=== PATIENT | female | born 1980 | race Two or more races ===

== ENCOUNTER 2017-06-06 20:07 | Inpatient (IN) | payer SELFPAY ==
[~2017-06-06 20:07] MED LIST: DEXAMETHASONE SOD PHOSPHATE INJ 4 MG/1 ML VIAL ONE; KETOROLAC TROMETHAMINE 60 MG/2 ML SDV ONE; METOCLOPRAMIDE HCL INJ/PF 10 MG/2 ML SDV ONE; ONDANSETRON HCL INJ/PF 4 MG/2 ML SDV ONE
[2017-06-06] MEDS ORDERED: CEFAZOLIN 2 GM/D5W RTU 2 GM/50 ML RTUPB IV ONE (20:41)
[2017-06-06] MEDS ORDERED: CITRIC ACID/SODIUM CITRATE ORAL SOLN 15 ML UDCUP ONE (20:41)
[2017-06-06 20:51] LABS: ABSOLUTE BASOPHILS # (AUTO) 0.1 10^3/uL (0.0-0.2); ABSOLUTE EOSINOPHILS # (AUTO) 0.1 10^3/uL (0.0-0.6); ABSOLUTE LYMPHOCYTES (AUTO) 2.4 10^3/uL (0.5-4.7); ABSOLUTE MONOCYTES (AUTO) 0.7 10^3/uL (0.1-1.4); ABSOLUTE NEUT (AUTO) 7.1 10^3/uL (1.7-8.2); BASOPHILS % (AUTO) 0.8 % (0-2); EOSINOPHILS % (AUTO) 0.9 % (0-6); HEMOGLOBIN 12.3 g/dL (12.0-15.5); HGB HCT DIFFERENCE 0.9; LYMPHOCYTES % (AUTO) 22.9 % (13-45); MEAN CORPUSCULAR HEMOGLOBIN 27.2 pg (27.0-33.4); MEAN CORPUSCULAR HGB CONC 34.2 g/dL (32.0-36.0); MEAN CORPUSCULAR VOLUME 80 fl (80-97); MONOCYTES % (AUTO) 7.1 % (3-13); RED BLOOD COUNT 4.53 10^6/uL (3.72-5.28); RED CELL DISTRIBUTION WIDTH 14.8 % (11.5-14.0); SEGMENTED NEUTROPHILS % (AUTO) 68.3 % (42-78); WHITE BLOOD COUNT 10.3 10^3/uL (4.0-10.5)
[2017-06-06 21:06] LABS: APPEARANCE,URINE CLEAR; BILIRUBIN,URINE NEGATIVE (NEGATIVE); GLUCOSE, URINE NEGATIVE (NEGATIVE); KETONES,URINE NEGATIVE (NEGATIVE); LEUKOCYTE ESTERASE,URINE LARGE (NEGATIVE); NITRITE,URINE NEGATIVE (NEGATIVE); PROTEIN,URINE NEGATIVE (NEGATIVE); URINE SPECIFIC GRAVITY 1.009; UROBILINOGEN,URINE NEGATIVE mg/dL (<2.0)
[2017-06-06] MEDS ORDERED: OXYTOCIN/NORMAL SALINE 20 UNIT/1,000 ML RTUINJ ONE (21:18)
[2017-06-06] MEDS ORDERED: OXYTOCIN 10 UNIT/ML VIAL ONE (21:18)
[2017-06-06 21:19] LABS: URINE BARBITURATES SCREEN NEGATIVE; URINE METHADONE SCREEN NEGATIVE; URINE OPIATES LOW NEGATIVE; URINE PHENCYCLIDINE SCREEN NEGATIVE
[2017-06-06] MEDS ORDERED: FENTANYL CITRATE INJ/PF 100 MCG/2 ML AMPUL ONE (21:19)
[2017-06-06] MEDS ORDERED: EPHEDRINE SULFATE INJ 50 MG/1 ML AMPULE ONE (21:19)
[2017-06-06] MEDS ORDERED: MIDAZOLAM 2 MG/2 ML INJ ONE (21:19)
[2017-06-06] MEDS ORDERED: MEPERIDINE HCL/PF INJ 25 MG/1 ML DISP.SYRIN IV PRN (21:56)
[2017-06-06] MEDS ORDERED: PROMETHAZINE HCL INJ 25 MG/1 ML VIAL IV PRN ×2 (21:56)
[2017-06-06] MEDS ORDERED: FENTANYL CITRATE INJ/PF 100 MCG/2 ML AMPUL IV PRN ×3 (21:56)
[2017-06-06] MEDS ORDERED: MORPHINE SULFATE 10 MG/ML INJ IV PRN (21:56)
[2017-06-06] MEDS ORDERED: DIPHENHYDRAMINE HCL 50 MG/ML VIAL IV PRN (21:56)
[2017-06-06] MEDS ORDERED: ONDANSETRON HCL INJ/PF 4 MG/2 ML SDV IV PRN (22:01)
[2017-06-06] MEDS ORDERED: ACETAMINOPHEN 100 ML IV ONE (22:16)
--- NOTE | 2017-06-06 23:03 | OPERATIVE REPORT E ---
Operative Report NAME: BARI BENITO : 1980 AGE: 37Y DATE OF SURGERY: 06/06/2017 ROOM: LR200 PREOPERATIVE DIAGNOSIS: 1. A 39-week intrauterine . 2. Active labor. 3. Breech presentation. 4. Patient desired permanent sterilization. POSTOPERATIVE DIAGNOSIS: 1. A 39-week intrauterine . 2. Active labor. 3. Breech presentation. OPERATION: 1. Primary low transverse section. 2. Bilateral tubal ligation using Filshie clips. SURGEON: Diego Perry D.O. POKER MACHINE ATTENDANT: None. ANESTHESIA: Spinal. COMPLICATIONS: None. PATHOLOGY: None. ESTIMATED BLOOD LOSS: 600 mL. FINDINGS: 1. Viable female at 2145 hours on June 06, 2017. Apgars 8 at 1 and 9 at 5. 2. Junie breech presentation. 3. Normal appearing bilateral fallopian tubes and ovaries. PROCEDURE: Patient was taken to the operating room where spinal anesthesia was administered. Once this was done, she was placed in the dorsal supine position with a leftward tilt upon the operating room table. She was then prepped and draped in normal sterile fashion. A scalpel was then used to make a Pfannenstiel skin incision. The skin incision was carried down through the subcutaneous tissue to the layer of the fascia. Fascia was then incised in the midline. The fascial incision was then extended bilaterally using the Bovie cautery. The superior fascial edge was gasped by Daniele clamps, elevated, and the rectus muscles dissected off sharply and bluntly. Attention was then turned to the inferior fascial edge which was grasped by Daniele clamps, elevated and the rectus muscles were dissected off sharply and bluntly. The rectus muscles were then in the midline, perineum identified, and entered bluntly with the surgeon's hands. A bladder blade was inserted. A scalpel was then used to make a low transverse hysterotomy incision. The infant was found to be in the junie breech presentation and delivered through this incision without difficulty using the breech maneuvers. The nose and mouth were suctioned. Cord was clamped and cut. The infant was handed off to the awaiting nurses. Cord blood was obtained. The placenta was then manually removed from the uterus. The uterus was then exteriorized and cleared of all clots and debris. The hysterotomy incision was then reapproximated using 2 layers of 1-0 Vicryl in a running locking fashion. Following closure of the second layer, excellent hemostasis was noted. A Filshie clip was then placed on the mid portion of each fallopian tube without difficulty. The uterus was then returned to the abdomen. Again, the hysterotomy incision was reinspected and found to have excellent hemostasis. Rectus muscles were then reapproximated using 1-0 Vicryl interrupted sutures. The fascia was then closed using 1-0 Vicryl in a running nonlocking fashion. The subcutaneous space was made hemostatic using Bovie cautery. The skin was closed using dissolvable saumya, covered with an OpSite, and then with a pressure dressing. At this point in time, the procedure was terminated. All sponge, lap, and needle counts were correct x2. Patient tolerated the procedure well. Patient was taken to the recovery room in stable condition. DICTATING PHYSICIAN: Diego Perry DO [id number] PHY#: [id number] ID: [id number] JOB#: [id number] ACCT: [id number] cc:Diego Perry D.O. >
[2017-06-06] MEDS ORDERED: HYDROMORPHONE HCL INJ/PF 2 MG/ML AMPULE ONE (23:18)
--- NOTE | 2017-06-07 00:49 | Admission Physical ---
Datetime Report Generated by CPN: 06/07/2017 00:49 CURRENT ADMISSION Chief Complaint: Uterine Contractions Indication for Induction: Not Applicable Indication for Induction: Term, Intrauterine ; Active Labor; Intact Membranes; Primary Section Admit Impression- Other: Breech Presentation Admit Plan: Admit to Unit; Initiate Section Protocol ALLERGIES Medication Allergies: Yes Medication Allergies: No Known Allergies (06/06/2017) Latex: No Latex Allergies OBSTETRICAL HISTORY EDC: 06/12/2017 00:00 : 4 Para: 3 Term: 3 : 0 SAB: 0 IAB: 0 Ectopic: 0 Livin Cesareans: 0 VBACs: 0 Multiple Births: 0 Gestational Diabetes: No Rh Sensitization: No Incompetent Cervix: No GI: No Infertility: No ART Treatment: No Uterine Anomaly: No IUGR: No Hx Previous C/S: No Macrosomia: No Hx Loss/Stillborn: No PIH: No Hx : No Placenta Previa/Abruption: No Depression/PP Depression: No PTL/PROM: No Post Hemorrhage: No Obstetrical History Comments: g1 - 12/02/2002 vaginal g2 - 08/22/2008 vaginal g3 - 02/21/2015 vaginal g4 - current - AMA breech presentation SEE RECORDS Alcohol: No Marijuana : No Cocaine: No Other Illicit Drugs: No Cigarettes: Never Smoker. [id number] MEDICAL HISTORY Diabetes: No Blood Transfusion: No Pulmonary Disease (Asthma, TB): No Breast Disease: No Hypertension: No Rn Obgyn Surgery: No Heart Disease: No Hosp/Surgery: No Autoimmune Disorder: No Anesthetic Complications: No Kidney Disease: No Abnormal Pap Smear: No Neuro/Epilepsy: No Psychiatric Disorders: No Other Medical Diseases: No Hepatitis/Liver Disease: No Significant Family History: No Varicosities/Phlebitis: No Trauma/Violence : No Thyroid Dysfunction: No INFECTIOUS HISTORY Gonorrhea: No Genital Herpes: No Chlamydia: No Tuberculosis: No Syphilis: No Hepatitis: No HIV/AIDS Exposure: No Rash or Viral Illness: No HPV: Yes PHYSICAL EXAM General: Normal HEENT: Normal Neurologic: Normal Thyroid: Deferred Heart: Normal Lungs: Normal Breast: Deferred Back: Normal Abdomen: Normal Genitourinary Exam: Normal Extremities: Normal DTRs: Normal Pelvic Type: Adequate Vital Signs: Reviewed; Within Normal Limits VAGINAL EXAM Dilatation: 5 Effacement: 50 Station: -1 MEMBRANES Membranes: Intact FETUS A Monitoring: External US FHR- Baseline: 140 Variability: Moderate 6-25bpm Accelerations: 15X15 Decelerations: None FHR Category: Category I Presentation: Breech Admit Comment: Will proceed with Primary C/S secondary to Breech presentation and active labor Will proceed with BTL, pt desires permanent sterlization PLANS FOR LABOR AND DELIVERY Labor and Delivery: None Pain Management: Spinal Feeding Preference: Breast Benefit of Breast Feed Discussed: Yes Circumcision: N/A INFORMED CONSENT Signature: with User ID: [email or web address]
[2017-06-07] MEDS ORDERED: OXYTOCIN/NORMAL SALINE 20 UNIT/1,000 ML RTUINJ INJ PRN (02:06)
[2017-06-07] MEDS ORDERED: OXYCODONE-ACETAMINOPHEN 5-325 MG TABLET PO PRN (02:30)
[2017-06-07] MEDS ORDERED: DIPH/PERTUSS(ACELL)/TETANUS VAC/PF 0.5 ML SYR (>=10YO) IM PRN (02:30)
[2017-06-07] MEDS ORDERED: PROMETHAZINE HCL INJ 25 MG/1 ML VIAL IM PRN (02:30)
[2017-06-07] MEDS ORDERED: MEASLES,MUMPS&RUBELLA VACC/PF 0.5 ML VIAL SUBCUT PRN (02:30)
[2017-06-07] MEDS ORDERED: SIMETHICONE 80 MG TAB.CHEW PO PRN (02:30)
[2017-06-07] MEDS ORDERED: RINGERS SOLUTION,LACTATED 1,000 ML IV SCH (02:30)
[2017-06-07] MEDS ORDERED: HYDROMORPHONE HCL INJ/PF 2 MG/ML AMPULE IV PRN (02:30)
[2017-06-07] MEDS ORDERED: ACETAMINOPHEN 325 MG TABLET PO PRN (02:30)
[2017-06-07] MEDS: IBUPROFEN 800 MG TABLET PO SCH ×3 (05:55→17:56)
--- NOTE | 2017-06-07 09:49 | PDOC PROGRESS REPORT ---
Subjective-OB Subjective: Post Delivery Day: 1 37 year old. Denies any needs at this time, has not gotten up yet, states pain well controlled with current pain meds, vang in place. Physical Exam (OB) Vital Signs: Temp Pulse Resp BP Pulse Ox 97.8 F 64 16 103/55 L 99 06/07/17 08:01 06/07/17 08:01 06/07/17 08:01 06/07/17 08:01 06/07/17 08:01 Intake & Output 06/06/17 06/07/17 06/08/17 06:59 06:59 06:59 Intake Total 300 Output Total 200 Balance -200 300 Weight 97 kg - PIH/Pre-Eclampsia Clonus: Negative Headache: Absent - Dressing Removed: No Incision: Dressing - Lochia Lochia Amount: Small 10-25 ml Lochia Color: Rubra/Red - Abdomen Description: Soft Hernia Present: No Fundal Description: Firm, Midline Fundal Height: u/3 - u/4 Objective-Diagnostic Laboratory: 06/06/17 20:40 06/06/17 06/06/17 06/06/17 20:13 20:40 20:40 WBC 10.3 RBC 4.53 Hgb 12.3 Hct 36.0 MCV 80 MCH 27.2 MCHC 34.2 RDW 14.8 H Plt Count 267 Seg Neutrophils % 68.3 Lymphocytes % 22.9 Monocytes % 7.1 Eosinophils % 0.9 Basophils % 0.8 Absolute Neutrophils 7.1 Absolute Lymphocytes 2.4 Absolute Monocytes 0.7 Absolute Eosinophils 0.1 Absolute Basophils 0.1 Urine Color YELLOW Urine Appearance CLEAR Urine pH 6.0 Ur Specific [place] 1.009 Urine Protein NEGATIVE Urine Glucose (UA) NEGATIVE Urine Ketones NEGATIVE Urine Blood SMALL H Urine Nitrite NEGATIVE Ur Leukocyte Esterase LARGE H Blood Type O POSITIVE Antibody Screen NEGATIVE Assessment and Plan(PN) - Assessment and Plan (1) S/P primary low transverse Is this a current diagnosis for this admission?: Yes Plan: routine post op care - Time Spent with Patient Time with patient: Less than 15 minutes Critical Time spent with patient: Less than 15 minutes Medications reviewed and adjusted accordingly: Yes - Disposition Anticipated Discharge: Home Within: within 48 hours
[2017-06-07] MEDS: DOCUSATE SODIUM 100 MG CAPSULE PO SCH ×2 (10:11→17:54)
[2017-06-07] MEDS: PRENATAL VITAMIN W-O CA NO5/FE FUMARATE/FA CAPSULE PO SCH (10:11)
[2017-06-07] MEDS: OXYCODONE-ACETAMINOPHEN 5-325 MG TABLET PO PRN ×2 (12:11→21:41)
[2017-06-07 14:18] LABS: HEMATOCRIT 26.7 % (36.0-47.0); MEAN CORPUSCULAR HEMOGLOBIN 26.8 pg (27.0-33.4); MEAN CORPUSCULAR HGB CONC 33.4 g/dL (32.0-36.0); MEAN CORPUSCULAR VOLUME 80 fl (80-97); RED BLOOD COUNT 3.33 10^6/uL (3.72-5.28); RED CELL DISTRIBUTION WIDTH 14.7 % (11.5-14.0); WHITE BLOOD COUNT 12.7 10^3/uL (4.0-10.5)
[2017-06-07 14:20] LABS: HEMOGLOBIN 8.9 g/dL (12.0-15.5)
[2017-06-08] MEDS: IBUPROFEN 800 MG TABLET PO SCH ×3 (00:54→11:33)
--- NOTE | 2017-06-08 08:21 | PDOC DISCHARGE SUMMARY ---
Final Diagnosis Discharge Date: 06/08/17 - Final Diagnosis (1) S/P primary low transverse Is this a current diagnosis for this admission?: Yes (2) Acute blood loss anemia Is this a current diagnosis for this admission?: Yes (3) History of bilateral tubal ligation Is this a current diagnosis for this admission?: Yes Discharge Data - Discharge Medication Home Medications: Pnv,Calcium 72/Iron/Folic Acid [ Plus Tablet] 1 each PO DAILY 06/06/17 Docusate Sodium [Colace 100 mg Capsule] 100 mg PO BID #60 capsule 06/08/17 Ferrous Sulfate 325 mg PO BID #60 tablet. 06/08/17 Ibuprofen [Motrin 800 mg Tablet] 800 mg PO Q6 #60 tablet 06/08/17 Oxycodone HCl/Acetaminophen [Percocet 5-325 mg Tablet] 2 tab PO Q4HP PRN #30 tablet 06/08/17 Gestational Age: 39 Reason(s) for Admission: Onset of Labor Procedures: NST Intrapartum Procedure(s): : Low Cervical, Transverse, Tubal Ligation - Data Baby 1 Female at 1 minute: 8 at 5 minutes: 9 Home with Mother: Yes Complications: No - Diagnosis Test Laboratory: Temp Pulse Resp BP Pulse Ox 98.4 F 71 16 96/48 L 100 06/08/17 04:34 06/08/17 04:34 06/08/17 04:34 06/08/17 04:34 06/08/17 04:34 06/06/17 06/06/17 06/07/17 20:13 20:40 13:59 RBC 4.53 3.33 L Hgb 12.3 8.9 L D Hct 36.0 26.7 L Urine Opiates Screen NEGATIVE - Discharge information/Instructions Discharge Activity: No Driving Discharge Diet: Regular Disposition: HOME, SELF-CARE Follow up with: [facility] in: 1, Weeks
[2017-06-08 09:00] VITALS: BP 100/50
[2017-06-08] MEDS: PRENATAL VITAMIN W-O CA NO5/FE FUMARATE/FA CAPSULE PO SCH (09:50)
[2017-06-08] MEDS: DOCUSATE SODIUM 100 MG CAPSULE PO SCH (09:50)
[2017-06-08] MEDS: OXYCODONE-ACETAMINOPHEN 5-325 MG TABLET PO PRN (11:34)
== END 2017-06-08 13:19 | disposition home or self-care (01) | DRG 765 ==
LOC: LC 20:07 → LR 20:30 → 2S 06-07 00:22
PROVIDERS: ADMIT Obstetrics & Gynecology; ATTEND Obstetrics & Gynecology
PROC: 10D00Z1 Extraction of Products of Conception, Low, Open Approach (ICD-10-PCS; principal; 2017-06-06)
PROC: 0UL70CZ Occlusion of Bilateral Fallopian Tubes with Extraluminal Device, Open Approach (ICD-10-PCS; 2017-06-06)
PROC: 4A1HXCZ Monitoring of Products of Conception, Cardiac Rate, External Approach (ICD-10-PCS; 2017-06-06)
PROC: 3E0234Z Introduction of Serum, Toxoid and Vaccine into Muscle, Percutaneous Approach (ICD-10-PCS; 2017-06-08)
DX: O64.1XX0 Obstructed labor due to breech presentation, not applicable or unspecified (principal); D62 Acute posthemorrhagic anemia; O99.02 Anemia complicating childbirth; Z37.0 Single live birth; Z3A.39 39 weeks gestation of pregnancy; Z30.2 Encounter for sterilization; Z23 Encounter for immunization
CPT/HCPCS: 1961; 36415; 59025; 80307; 81005; 85025; 85027; 86592; 86850; 86900; 86901; 90715; J0131; J0690; J1100; J1170; J1885; J2250; J2405; J2590; J2765; J3010; J3490

== ENCOUNTER 2019-11-14 15:28 | Emergency (ER) | payer SELFPAY ==
[2019-11-14] MEDS ORDERED: PROMETHAZINE HCL 25 MG TABLET PO ONE (15:58)
[2019-11-14] MEDS ORDERED: ACETAMINOPHEN 325 MG TABLET PO ONE (15:58)
--- NOTE | 2019-11-14 16:00 | ER Document Report ---
ED Medical Screen (RME) - General Chief Complaint: Flu Symptoms Stated Complaint: FEVER Time Seen by Provider: 11/14/19 15:48 Primary Care Provider: YEE RADFORD DO [Primary Care Provider] - Follow up as needed Mode of Arrival: Ambulatory Information source: Patient Notes: This 39-year-old primarily speaking Persian individual presents emergency department with complaints of cold symptoms for the past 3 days. Reports severe headache fever vomiting 3 times prior to arrival, sore throat low back pain abdominal pain starting today. Reports her children have the same symptoms. Denies diarrhea. Patient has not been out of the country or exposed to anybody recently on the country. Denies flu vaccine. Patient took ibuprofen 600 mg at approximately noon today. I have greeted and performed a rapid initial assessment of this patient. A comprehensive ED assessment and evaluation of the patient, analysis of test results and completion of the medical decision making process will be conducted by additional ED providers. TRAVEL OUTSIDE OF THE [place] IN LAST 30 DAYS: No - Related Data Allergies/Adverse Reactions: No Known Allergies Allergy (Unverified 06/06/17 10:03) Past Medical History - Immunizations Hx Diphtheria, Pertussis, Tetanus Vaccination: Yes Physical Exam - Vital signs Vitals: Temp Pulse Resp BP Pulse Ox 102.8 F H 120 H 18 123/66 98 11/14/19 15:35 11/14/19 15:35 11/14/19 15:35 11/14/19 15:35 11/14/19 15:35 Course - Vital Signs Vital signs: Temp Pulse Resp BP Pulse Ox 102.8 F H 120 H 18 123/66 98 11/14/19 15:35 11/14/19 15:35 11/14/19 15:35 11/14/19 15:35 11/14/19 15:35 Doctor's Discharge - Discharge Referrals: YEE RADFORD DO [Primary Care Provider] - Follow up as needed
[2019-11-14 16:53] LABS: ABSOLUTE LYMPHOCYTES (AUTO) 0.3 10^3/uL (0.5-4.7); ABSOLUTE MONOCYTES (AUTO) 0.4 10^3/uL (0.1-1.4); ABSOLUTE NEUT (AUTO) 4.4 10^3/uL (1.7-8.2); BASOPHILS % (AUTO) 0.4 % (0-2); EOSINOPHILS % (AUTO) 0.7 % (0-6); HEMATOCRIT 35.9 % (36.0-47.0); HEMOGLOBIN 12.1 g/dL (12.0-15.5); LYMPHOCYTES % (AUTO) 6.5 % (13-45); MEAN CORPUSCULAR HEMOGLOBIN 26.6 pg (27.0-33.4); MEAN CORPUSCULAR HGB CONC 33.8 g/dL (32.0-36.0); MEAN CORPUSCULAR VOLUME 79 fl (80-97); MONOCYTES % (AUTO) 7.9 % (3-13); PLATELET COUNT 280 10^3/uL (150-450); RED BLOOD COUNT 4.57 10^6/uL (3.72-5.28); RED CELL DISTRIBUTION WIDTH 14.5 % (11.5-14.0); SEGMENTED NEUTROPHILS % (AUTO) 84.5 % (42-78); TOTAL CELLS COUNTED % (AUTO) 100 %; WHITE BLOOD COUNT 5.3 10^3/uL (4.0-10.5)
[2019-11-14 16:56] LABS: APPEARANCE,URINE CLOUDY; BILIRUBIN,URINE NEGATIVE (NEGATIVE); COLOR,URINE YELLOW; GLUCOSE, URINE NEGATIVE (NEGATIVE); KETONES,URINE NEGATIVE (NEGATIVE); LEUKOCYTE ESTERASE,URINE NEGATIVE (NEGATIVE); NITRITE,URINE NEGATIVE (NEGATIVE); PROTEIN,URINE 100 mg/dL (NEGATIVE); UROBILINOGEN,URINE NEGATIVE mg/dL (<2.0)
[2019-11-14 17:11] LABS: ALBUMIN 4.5 g/dL (3.5-5.0); ALKALINE PHOSPHATASE 79 U/L (38-126); ANION GAP 10 (5-19); ASPARTATE AMINO TRANSFERASE 23 U/L (14-36); BILIRUBIN,TOTAL 0.4 mg/dL (0.2-1.3); BLOOD UREA NITROGEN 8 mg/dL (7-20); CALCIUM 9.1 mg/dL (8.4-10.2); CARBON DIOXIDE 26 mmol/L (22-30); CHLORIDE 101 mmol/L (98-107); GLUCOSE 104 mg/dL (75-110); POTASSIUM 4.3 mmol/L (3.6-5.0); TOTAL PROTEIN 7.9 g/dL (6.3-8.2)
[2019-11-14 17:16] LABS: A TYPE INFLUENZA AG POSITIVE (NEGATIVE); B INFLUENZA AG NEGATIVE (NEGATIVE)
--- NOTE | 2019-11-14 18:11 | ER Document Report ---
Entered by NAINA HARRIS SCRIBE 11/14/19 [id number] Acting as scribe for:JOCELYNN MENDOZA DO ED General - General Chief Complaint: Flu Symptoms Stated Complaint: FEVER Time Seen by Provider: 11/14/19 15:48 Primary Care Provider: YEE RADFORD DO [NO LOCAL MD] - Follow up as needed Mode of Arrival: Ambulatory Notes: 39-year-old trinidadian speaking female presents to the emergency department complaining of flu-like symptoms that began 4 days ago. Patient reports headache, fever, rhinorrhea, vomiting, sore throat, low back pain and abdominal pain. Patient states that she has vomited two times today which none had blood present. Patient denies diarrhea. Patient states that her children at home have similar symptoms. Patient is not up to date on the influenza vaccine. Patient has not taken any medications and has not traveled recently. TRAVEL OUTSIDE OF THE [place] IN LAST 30 DAYS: No - Related Data Allergies/Adverse Reactions: No Known Allergies Allergy (Unverified 06/06/17 10:03) Past Medical History - General Information source: Patient - Social History Smoking Status: Never Smoker Cigarette use (# per day): No Chew tobacco use (# tins/day): No Family History: Reviewed & Not Pertinent Patient has suicidal ideation: No Patient has homicidal ideation: No - Medical History Medical History: Negative Past Surgical History: Reports: Hx Section - Immunizations Hx Diphtheria, Pertussis, Tetanus Vaccination: Yes Review of Systems - Review of Systems Constitutional: See HPI, Fever EENT: See HPI, Nose discharge, Throat pain Cardiovascular: No symptoms reported Respiratory: No symptoms reported Gastrointestinal: See HPI, Abdominal pain, Vomiting. denies: Diarrhea Genitourinary: No symptoms reported Female Genitourinary: No symptoms reported Musculoskeletal: See HPI - Lower, Back pain Skin: No symptoms reported Hematologic/Lymphatic: No symptoms reported Neurological/Psychological: See HPI, Headaches -: Yes All other systems reviewed and negative Physical Exam - Vital signs Vitals: Temp Pulse Resp BP Pulse Ox 102.8 F H 120 H 18 123/66 98 11/14/19 15:35 11/14/19 15:35 11/14/19 15:35 11/14/19 15:35 11/14/19 15:35 - Notes Notes: Physical Exam: General: Alert, appears well. HEENT: Normocephalic. Atraumatic. PERRL. Extraocular movements intact. Erythema in pharynx. Neck: Supple. Non-tender. Respiratory: No respiratory distress. Clear and equal breath sounds bilaterally. Cardiovascular: Regular rate and rhythm. Abdominal: Non-tender. No distension. Normal Bowel Sounds. Obese. Back: No gross abnormalities. Extremities: Moves all four extremities. Upper extremities: Normal inspection. Normal ROM. Lower extremities: Normal inspection. No edema. Normal ROM. Neurological: Normal cognition. AAOx4. Normal speech. Psychological: Normal affect. Normal Mood. Skin: Warm. Dry. Normal color. Course - Vital Signs Vital signs: Temp Pulse Resp BP Pulse Ox 98.2 F 75 14 100/51 L 99 11/14/19 19:54 11/14/19 19:54 11/14/19 19:54 11/14/19 19:54 11/14/19 19:54 - Laboratory Result Diagrams: 11/14/19 16:15 11/14/19 16:15 Laboratory results interpreted by me: 11/14/19 11/14/19 11/14/19 16:15 16:15 16:15 Hct 35.9 L MCV 79 L MCH 26.6 L RDW 14.5 H Lymph % (Auto) 6.5 L Absolute Lymphs (auto) 0.3 L Seg Neutrophils % 84.5 H Creatinine 0.50 L Urine Protein 100 H Urine Blood LARGE H Urine Ascorbic Acid 40 H Discharge - Discharge Clinical Impression: Influenza A Condition: Good Disposition: HOME, SELF-CARE Instructions: Acetaminophen, Family Physicians / Practices, Fever ([facility]), Viral Syndrome ([facility]) Additional Instructions: See your doctor in follow up and please return here for any problems or any concerns. Take your medicine as directed. Prescriptions: Oseltamivir Phosphate [Tamiflu 75 mg Capsule] 75 mg PO BID #10 capsule Forms: Return to Work Referrals: YEE RADFORD DO [NO LOCAL MD] - Follow up as needed I personally performed the services described in the documentation, reviewed and edited the documentation which was dictated to the scribe in my presence, and it accurately records my words and actions.
[2019-11-14] MEDS ORDERED: OSELTAMIVIR PHOSPHATE 75 MG CAPSULE PO ONE (18:29)
[2019-11-14 19:55] VITALS: BP 100/51
== END 2019-11-14 19:55 | disposition home or self-care (01) ==
LOC: ER 15:28
DX: J11.1 Influenza due to unidentified influenza virus with other respiratory manifestations (principal); R50.9 Fever, unspecified; R51 Headache; R11.10 Vomiting, unspecified
CPT/HCPCS: 99283; 36415; 87070; 87880; 85025; 81025; 80053; 81001; 87804; J3490